=== PATIENT | male | born 1975 | race Caucasian/White ===

== ENCOUNTER 2018-08-13 08:22 | Emergency (ER) | payer SELFPAY ==
[2018-08-13 08:42] LABS: #Basophils 0.1 thou/uL (0.0-0.2); #Eosinphils 0.7 thou/uL (0.0-0.7); #Lymphocytes 3.1 thou/uL (1.20-3.40); #Monocytes 0.7 thou/uL (0.11-0.59); #Neutrophils 5.3 thou/uL (1.40-6.50); %Basophils 1.4 % (0.0-1.0); %Eosinophils 7.1 % (0.0-10.0); %Lymphocytes 30.8 % (21.0-51.0); %Monocytes 6.9 % (0.0-10.0); %Neutrophils 53.8 % (42.0-75.0); Mean Corpuscular HGB CONC 33.9 g/dL (32.0-36.0); Mean Corpuscular Hemoglobin 31.2 pg (27.0-31.0); Mean Corpuscular Volume 92.1 fL (78.0-98.0); Platelet Count 293 thou/uL (130-400); RBC Distribution Width 12.5 % (11.5-14.5); Red Blood Cell (RBC) Count 5.12 mill/uL (4.70-6.10); White Blood Cell (WBC) Count 9.9 thou/uL (4.8-10.8)
[2018-08-13 09:05] LABS: ALT (SGPT) 28 U/L (8-55); AST (SGOT) 17 U/L (5-34); Albumin 4.3 g/dL (3.5-5.0); Alkaline Phosphatase 52 U/L (40-150); Anion Gap 14 mmol/L (10-20); BUN (Urea Nitrogen) 14 mg/dL (8.9-20.6); Bilirubin, Total 0.5 mg/dL (0.2-1.2); Calc. Creatinine Clearance 0 mL/min (70-130); Calcium 9.8 mg/dL (7.8-10.44); Carbon Dioxide 25 mmol/L (22-29); Chloride 105 mmol/L (98-107); Estimated GFR-MDRD Greater than 90; Globulin 2.6 g/dL (2.4-3.5); Glucose 120 mg/dL (70-105); Potassium 4.5 mmol/L (3.5-5.1); Protein, Total 6.9 g/dL (6.0-8.3); Sodium 139 mmol/L (136-145)
[2018-08-13] MEDS ORDERED: Ketorolac Tromethamine 30 MG/ML VIAL ONE (09:15)
[2018-08-13 09:17] LABS: Bilirubin Negative (Negative); Blood, Urine Negative (Negative); Clarity CLEAR (Clear); Glucose, Urine (Dipstick) Negative (Negative); Leukocyte Negative (Negative); Nitrite Negative (Negative); Protein, Urine (Dipstick) Negative (Neg-Trace); Urobilinogen 0.2 mg/dL (0.2-1.0)
[2018-08-13] MEDS ORDERED: Morphine 4 MG/ML VIAL ONE (10:18)
--- NOTE | 2018-08-13 10:31 | CT ---
Exam: Abdomen CT without contrast Pelvic CT without contrast HISTORY: Right flank pain, x1 week COMPARISON: None FINDINGS: Abdomen CT: Lung bases:Clear Heart size: Normal size Aorta: Normal caliber Solid organs: Limited evaluation due to lack of IV contrast. Grossly no solid organ abnormality Lymph nodes: No gastrohepatic, retrocrural or periportal lymphadenopathy Gallbladder: Surgically absent Mesentery: No mass, lymphadenopathy, free air or free fluid Kidneys: Bilateral nonobstructing intrarenal calculi. Largest calcification right intrarenal collecti ng system measures 0.5 x 0.5 cm. Largest calculus in the left intrarenal collecting system measures 0.8 x 1.2 cm. Bilaterally no hydronephrosis or perinephric fat stranding. Bilateral ureters have a no rmal caliber. No hydroureter, periureteral fat stranding or ureterolithiasis. Alimentary canal: Limited evaluation due to lack of oral contrast. No evidence of bowel obstruction. Fecalization of the distal ileum and terminal ileum likely due to incompetent ileocecal valve. Scattered fecal material in a nondistended, nondilated colon. Normal caliber appendix. Incidental umbilical hernia containing mesenteric fat CT PELVIS: No mass, adenopathy, free air or free fluid. Urinary bladder: Unremarkable. Osseous structures: No lytic or blastic lesions IMPRESSION: 1. Bilateral nonobstructing intrarenal calculi. 2. No evidence of obstructive uropathy. 3. Normal caliber appendix.
[2018-08-13] MEDS ORDERED: Orphenadrine Citrate 60 MG/2 ML VIAL IM SCH (11:30)
== END 2018-08-13 12:53 | disposition home or self-care (01) ==
LOC: ERS 08:22
DX: R10.9 Unspecified abdominal pain (principal); Z79.899 Other long term (current) drug therapy
CPT/HCPCS: 36415; 74176; 80053; 81003; 85025; 96361; 96372; 96374; 96375; J1885; J2270; J2360

== ENCOUNTER 2019-02-17 10:56 | Observation (INO) | payer BC, SELFPAY ==
--- NOTE | 2019-02-17 11:26 | RAD ---
XR Chest 1 View Portable HISTORY: Chest pain COMPARISON: None FINDINGS: The heart size is normal. The lungs are well expanded without focal areas of consolidation, pneumothorax or pleural effusions. IMPRESSION: No radiographic evidence of acute cardiopulmonary process.
[2019-02-17 11:28] LABS: #Eosinphils 0.4 thou/uL (0.0-0.7); #Lymphocytes 2.5 thou/uL (1.20-3.40); #Monocytes 0.5 thou/uL (0.11-0.59); #Neutrophils 5.5 thou/uL (1.40-6.50); %Basophils 0.5 % (0.0-1.0); %Eosinophils 4.2 % (0.0-10.0); %Lymphocytes 27.8 % (21.0-51.0); %Monocytes 5.7 % (0.0-10.0); %Neutrophils 61.8 % (42.0-75.0); Hemoglobin 17.6 g/dL (14.0-18.0); Mean Corpuscular HGB CONC 33.5 g/dL (32.0-36.0); Mean Corpuscular Hemoglobin 31.4 pg (27.0-31.0); Mean Corpuscular Volume 93.7 fL (78.0-98.0); Mean Platelet Volume 7.4 fL (7.4-10.4); Platelet Count 267 thou/uL (130-400); Red Blood Cell (RBC) Count 5.61 mill/uL (4.70-6.10); White Blood Cell (WBC) Count 8.9 thou/uL (4.8-10.8)
[2019-02-17 11:53] LABS: ALT (SGPT) 33 U/L (8-55); AST (SGOT) 24 U/L (5-34); Albumin 4.5 g/dL (3.5-5.0); Alkaline Phosphatase 55 U/L (40-110); Anion Gap 11 mmol/L (10-20); BUN (Urea Nitrogen) 12 mg/dL (8.9-20.6); Bilirubin, Total 0.6 mg/dL (0.2-1.2); CK (CPK) 208 U/L (30-200); Calc. Creatinine Clearance 0 mL/min (70-130); Calcium 9.7 mg/dL (7.8-10.44); Carbon Dioxide 33 mmol/L (22-29); Chloride 99 mmol/L (98-107); Estimated GFR-MDRD 68; Globulin 2.9 g/dL (2.4-3.5); Glucose 107 mg/dL (70-105); Lipase 47 U/L (8-78); Potassium 4.1 mmol/L (3.5-5.1); Protein, Total 7.4 g/dL (6.0-8.3); Sodium 139 mmol/L (136-145)
[2019-02-17] MEDS ORDERED: Aspirin Chewable 81 MG TAB ONE (12:35)
[2019-02-17] MEDS ORDERED: Nitroglycerin 2% Ointment 1 INCH/1 GM Packet ONE (12:35)
[2019-02-17] MEDS ORDERED: Dextrose 50% Abboject 50 ML SYRINGE ONE (12:47)
[2019-02-17 14:34] VITALS: BMI 45.8
[2019-02-17] MEDS ORDERED: Ondansetron PF 4 MG/2 ML Vial IVP PRN (14:37)
[2019-02-17] MEDS ORDERED: Ondansetron ODT 4 MG TAB SL PRN (14:37)
[2019-02-17 14:52] LABS: Troponin I Less than 0.010 ng/mL (< 0.028)
[2019-02-17] MEDS ORDERED: Acetaminophen 650 MG Suppository PR PRN (14:55)
[2019-02-17] MEDS ORDERED: Acetaminophen 325 MG TAB PO PRN (14:55)
[2019-02-17] MEDS ORDERED: HumaLOG 300 UNITS/3 ML VIAL SC PRN ×2 (14:57)
[2019-02-17] MEDS ORDERED: Dextrose 50% Abboject 50 ML SYRINGE SLOW IVP PRN (14:57)
[2019-02-17] MEDS ORDERED: Dextrose 5% in Water 1,000 ML IV PRN (14:57)
--- NOTE | 2019-02-17 15:03 | PDOC.HHP ---
Hospitalist HPI - History of Present Illness Chest pain History of Present Illness: Mr. Louis presents complaining of chest pain that started yesterday evening while he was driving. He states it was a pressure "from the inside" in the center of his chest with pain in his left arm described as a squeezing. He states it lasted 15 minutes and once he was home he felt more tired than usual. Denies any associated diaphoresis or sob. No recent cough or hemoptysis. No lightheadedness or dizziness. No n/v. Reports having some discomfort while making coffee this morning and had 2 recurring episodes after that. Unsure about the length of time or severity of the pain. Today the discomfort was on the right side of the sternum. Recalls having some discomfort to the right scapula. He went to [facility] where he had his BP checked and states it was 150/104. He came in to the ED and on arrival had mild discomfort which has resolved. At present he complains of a mild headache, otherwise has no complaints. Patient reports being told he had a large left ventricle and heart murmur >10 years ago. He does not follow with any monitoring coordinator. No previous heart stents or procedures. ED Course: EKG in the ED showed NSR, HR is 70. No ST changes or T wave abnormalities. He was given aspirin 324 mg, 1 inch nitro bid and 500 mLs of NS CXR was done and unremarkable. He had labs done which also were unremarkable and initial trop was negative. CK elevated at 208. Hospitalist ROS - Review of Systems Constitutional: denies: fever, chills, sweats, weakness, malaise, other Eyes: denies: pain, vision change, conjunctivae inflammation, eyelid inflammation, redness, other ENT: denies: ear pain, ear discharge, nose pain, nose discharge, nose congestion , mouth pain, mouth swelling, throat pain, throat swelling, other Respiratory: denies: cough, dry, shortness of breath, hemoptysis, SOB with excertion, pleuritic pain, sputum, wheezing, other Cardiovascular: reports: chest pain. denies: palpitations, orthopnea, paroxysmal noc. dyspnea, edema, light headedness, other Gastrointestinal: denies: nausea, vomiting, abdominal pain, diarrhea, constipation, melena, hematochezia, other Genitourinary: denies: dysuria, frequency, incontinence, hematuria, retention, other Musculoskeletal: reports: arm pain (left). denies: neck pain, shoulder pain, back pain, hand pain, leg pain, foot pain, other Skin: denies: rash, lesions, markel, bruising, other Neurological: denies: weakness, numbness, incoordination, change in speech, confusion, seizures, other Hospitalist History - Past Medical History Source: patient Cardiac: reports: HTN, Other (Enlarged left ventricle significant varicose veins ) Psych: reports: Anxiety Endocrine: reports: Diabetes, Other (Gal's) - Social History Smoking Status: Former smoker Alcohol: reports: None Drugs: reports: none Living Situation: With Family Activity level: independent ambulation - Exam General Appearance: NAD, awake alert Eye: PERRL, anicteric sclera ENT: normocephalic atraumatic, no oropharyngeal lesions, moist mucosa Neck: supple, symmetric, no lymphadenopathy Heart: RRR Heart - other findings: no chest wall tenderness Respiratory: CTAB, no wheezes, no rales, no ronchi, normal chest expansion Gastrointestinal: soft, non-tender, normal bowel sounds Gastrointestinal - other findings: obese Extremities - other findings: severe varicose veins in both lower legs, left > right Skin: normal turgor, no lesions, no rashes Neurological: cranial nerve grossly intact Musculoskeletal: normal tone, normal strength, no muscle wasting Psychiatric: normal affect, normal behavior, A&O x 3 Hospitalist Results - Labs Result Diagrams: 02/17/19 11:09 02/17/19 11:09 Lab results: WBC 8.9 thou/uL (4.8-10.8) 02/17/19 11:09 Hgb 17.6 g/dL (14.0-18.0) 02/17/19 11:09 Hct 52.5 % (42.0-52.0) H 02/17/19 11:09 MCV 93.7 fL (78.0-98.0) 02/17/19 11:09 Plt Count 267 thou/uL (130-400) 02/17/19 11:09 Neutrophils % 61.8 % (42.0-75.0) 02/17/19 11:09 Sodium 139 mmol/L (136-145) 02/17/19 11:09 Potassium 4.1 mmol/L (3.5-5.1) 02/17/19 11:09 Chloride 99 mmol/L (98-107) 02/17/19 11:09 Carbon Dioxide 33 mmol/L (22-29) H 02/17/19 11:09 BUN 12 mg/dL (8.9-20.6) 02/17/19 11:09 Creatinine 1.17 mg/dL (0.7-1.3) 02/17/19 11:09 Glucose 107 mg/dL (70-105) H 02/17/19 11:09 Calcium 9.7 mg/dL (7.8-10.44) 02/17/19 11:09 Total Bilirubin 0.6 mg/dL (0.2-1.2) 02/17/19 11:09 AST 24 U/L (5-34) 02/17/19 11:09 ALT 33 U/L (8-55) 02/17/19 11:09 Alkaline Phosphatase 55 U/L (40-110) 02/17/19 11:09 Creatine Kinase 208 U/L (30-200) H 02/17/19 11:09 Troponin I Less than 0.010 ng/mL (< 0.028) 02/17/19 14:21 Serum Total Protein 7.4 g/dL (6.0-8.3) 02/17/19 11:09 Albumin 4.5 g/dL (3.5-5.0) 02/17/19 11:09 Lipase 47 U/L (8-78) 02/17/19 11:09 - Radiology Interpretation Chest x-ray Status: report reviewed by co Hospitalist H&P A/P - Problem (1) Chest pain Code(s): R07.9 - CHEST PAIN, UNSPECIFIED Status: Resolved (2) Hypertension Code(s): I10 - ESSENTIAL (PRIMARY) HYPERTENSION Status: Chronic (3) Diabetes mellitus Code(s): E11.9 - TYPE 2 DIABETES MELLITUS WITHOUT COMPLICATIONS Status: Chronic (4) Obesity Code(s): E66.9 - OBESITY, UNSPECIFIED Status: Chronic (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 Continuous cardiac monitoring. Daily aspirin. Lipid panel in AM. Add-on Mg+, BNP and TSH. Cardiac stress test in AM. NPO at midnight. Echo ordered (?enlarged ventricle and murmur >10 years ago per patient). CXR showed no evidence of cardiomegaly. Monitor BP and glucose. Initiate insulin sliding scale. Hold metformin. Resume home meds once verified. CODE STATUS: FULL Surrogate decision maker: His
[2019-02-17] MEDS ORDERED: Zolpidem Tartrate 5 MG TAB PO PRN (15:21)
[2019-02-17 17:26] LABS: Troponin I Less than 0.010 ng/mL (< 0.028)
[2019-02-17] MEDS ORDERED: traMADol HCl 50 MG TAB PO SCH (19:30)
[2019-02-17] MEDS ORDERED: Famotidine/PF 20 mg/2ml Vial SLOW IVP SCH (21:00)
[2019-02-17] MEDS ORDERED: Sodium Chloride 0.9% 1,000 ML IV SCH (23:55)
[2019-02-18 05:38] LABS: #Basophils 0.1 thou/uL (0.0-0.2); #Eosinphils 0.4 thou/uL (0.0-0.7); #Lymphocytes 2.1 thou/uL (1.20-3.40); #Monocytes 0.5 thou/uL (0.11-0.59); #Neutrophils 4.5 thou/uL (1.40-6.50); %Basophils 0.8 % (0.0-1.0); %Lymphocytes 27.3 % (21.0-51.0); %Monocytes 7.3 % (0.0-10.0); %Neutrophils 59.6 % (42.0-75.0); Hemoglobin 16.3 g/dL (14.0-18.0); Mean Corpuscular HGB CONC 32.9 g/dL (32.0-36.0); Mean Corpuscular Hemoglobin 30.3 pg (27.0-31.0); Mean Corpuscular Volume 92.3 fL (78.0-98.0); Mean Platelet Volume 7.3 fL (7.4-10.4); Platelet Count 250 thou/uL (130-400); RBC Distribution Width 12.1 % (11.5-14.5); Red Blood Cell (RBC) Count 5.38 mill/uL (4.70-6.10); White Blood Cell (WBC) Count 7.5 thou/uL (4.8-10.8)
[2019-02-18 05:58] LABS: Anion Gap 9 mmol/L (10-20); BUN (Urea Nitrogen) 10 mg/dL (8.9-20.6); Calc. Creatinine Clearance 198 mL/min (70-130); Carbon Dioxide 32 mmol/L (22-29); Cardiac Risk 3.9 (Less than 4.5); Chloride 100 mmol/L (98-107); Cholesterol 120 mg/dl (< 200 Desired); Estimated GFR-MDRD 73; Glucose 114 mg/dL (70-105); HDL Cholesterol 31 mg/dL (>60 Neg Risk); LDL Cholesterol, Calculated 63 mg/dL; Potassium 4.1 mmol/L (3.5-5.1); Sodium 137 mmol/L (136-145); Triglycerides 130 mg/dL (Less than 150)
[2019-02-18] MEDS ORDERED: Aspirin 81 mg Enteric Coated Tablet PO SCH ×2 (09:00)
[2019-02-18] MEDS ORDERED: Allopurinol 300 MG TAB PO SCH (09:00)
[2019-02-18] MEDS ORDERED: Levothyroxine Sodium 75 MCG TAB PO SCH (09:00)
[2019-02-18] MEDS ORDERED: Montelukast Sodium 10 mg Tablet PO SCH (09:00)
[2019-02-18] MEDS ORDERED: Lisinopril 20 MG TAB PO SCH (09:00)
[2019-02-18 12:13] VITALS: BP 120/73; TEMP 98.5
--- NOTE | 2019-02-18 12:48 | NM ---
EXAM: CARDIAC SPECT HISTORY: Chest pain TECHNIQUE: A myocardial perfusion scan was performed using the single isotope 2 day protocol with khushbu hnetium 99m sestamibi. [33 mCi] was injected intravenously for the rest exam followed by 33 mCifor the stress study. Exercise stress was monitored and interpreted by Dr. Méndez FINDINGS: Homogeneous tracer distribution is seen in the myocardial segments on stress and rest image s without fixed or reversible defects. Gated SPECT LVEF: 56% Wall motion exam: Normal IMPRESSION: Normal myocardial perfusion scan
--- NOTE | 2019-02-18 16:17 | DIS ---
DATE OF ADMISSION: 02/17/2019 DATE OF DISCHARGE: 02/18/2019 DISCHARGE DISPOSITION: Home. FOLLOWUP: Follow up with primary care physician in 2 to 3 days. The patient was advised to follow up on the echocardiogram report. DISCHARGE MEDICATIONS: Same as admission medications. The patient was seen and examined on the day of discharge. Denies any new complaints. No chest pain, shortness of breath, or palpitations reported. BRIEF HOSPITAL COURSE: The patient is a 43-year-old male with morbid obesity and hypertension, presented to the emergency room with chest discomfort. Please refer to the history and physical dated 17 February 2019 for further details. The patient was admitted to the hospital with a diagnosis of chest discomfort, rule out acute coronary syndrome. His serial troponins remained negative. He was monitored on the telemetry unit. He underwent Cardiolite stress test that was negative for reversible ischemia. There was no wall motion abnormality. He appears stable for discharge. He was advised to follow up on the echocardiogram report, which was done earlier today. FINAL DIAGNOSES: 1. Chest discomfort. Acute coronary syndrome ruled out. 2. No reversible ischemia on the stress test. 3. Hypertension. The patient was advised to take extra 10 mg of lisinopril if his blood pressures are elevated. 4. Diabetes mellitus type 2. 5. Morbid obesity with a BMI of 45.9. 6. History of Gal's thyroiditis. 7. Bilateral lower extremity varicose veins. 8. Chronic kidney disease, stage 2. PLAN: Plan of care was discussed with the patient in detail. He stated understanding. Job ID: [id number]
== END 2019-02-18 14:20 | disposition home or self-care (01) ==
LOC: ERS 10:56 → 2SW 14:00
PROVIDERS: ADMIT Internal Medicine; ATTEND Internal Medicine
DX: R07.89 Other chest pain (principal); I12.9 Hypertensive chronic kidney disease with stage 1 through stage 4 chronic kidney disease, or unspecified chronic kidney disease; E11.22 Type 2 diabetes mellitus with diabetic chronic kidney disease; N18.2 Chronic kidney disease, stage 2 (mild); I83.93 Asymptomatic varicose veins of bilateral lower extremities; E66.9 Obesity, unspecified; E06.3 Autoimmune thyroiditis; Z68.42 Body mass index [BMI] 45.0-49.9, adult; Z79.84 Long term (current) use of oral hypoglycemic drugs; Z79.899 Other long term (current) drug therapy; Z87.891 Personal history of nicotine dependence; Z88.8 Allergy status to other drugs, medicaments and biological substances
CPT/HCPCS: 36415; 36416; 71045; 78452; 80048; 80053; 80061; 82550; 83690; 83735; 83880; 84443; 84484; 85025; 93005; 93017; 93306; 96360; 96361; A9500; G0378